=== PATIENT | female | born 1945 | race Caucasian/White ===

== ENCOUNTER → 2016-12-13 | Outpatient (CLI) | payer MEDICARE, OTHER | END | disposition home or self-care (01) | LOC: CFH 13:00 | PROVIDERS: ATTEND Internal Medicine Cardiovascular Disease | DX: I08.3 Combined rheumatic disorders of mitral, aortic and tricuspid valves (principal); I10 Essential (primary) hypertension; I51.7 Cardiomegaly; E11.9 Type 2 diabetes mellitus without complications; I25.2 Old myocardial infarction; I37.1 Nonrheumatic pulmonary valve insufficiency; Z95.5 Presence of coronary angioplasty implant and graft | CPT/HCPCS: C8929 ==

== ENCOUNTER 2017-01-03 09:57 | Day surgery (SDC) | payer MEDICARE, OTHER ==
[2017-01-01 13:26] VITALS: BP 123/62
[2017-01-01 13:44] LABS: BLOOD UREA NITROGEN 21 mg/dL (7-18)
[~2017-01-03] VITALS: Ht 160 cm; Wt 77.3 kg
[~2017-01-03 09:57] MED LIST: ASPI-496 PO; ATOR20TA PO; CARV12.52 PO; DULO20CA45 PO; FLUO20CA8 PO; FURO40TA6 PO; INSU100C SQ-INSULIN; INSU100I13 SQ; LEVO112T2 PO; LISI5TAB7 PO; OXYC20TA2 PO; POTA20TA6 PO; PRAM0.5T PO; SPIR25TA3 PO
[2017-01-03] MEDS ORDERED: SODIUM CHLORIDE 0.9% 1,000 ML IV SCH (10:11)
[2017-01-03] MEDS ORDERED: INSU300I SQ (10:28)
[2017-01-03] MEDS ORDERED: FURO20TA3 PO (10:28)
[2017-01-03] MEDS ORDERED: LIDOCAINE 2%, 20ML ONE (10:54)
[2017-01-03] MEDS ORDERED: MIDAZOLAM 1 MG/ML, 5ML ONE (10:54)
[2017-01-03] MEDS ORDERED: FENTANYL PF 100 MCG/2ML ONE (10:54)
[2017-01-03] MEDS ORDERED: HEPARIN 1,000 UNITS/ML, 10ML ONE (10:54)
[2017-01-03] MEDS ORDERED: VERAPAMIL 2.5 MG/ML, 2ML ONE (11:01)
[2017-01-03] MEDS ORDERED: SODIUM CHLORIDE 0.9% 500 ML IV SCH (13:30)
[2017-01-03] MEDS ORDERED: SACU1TAB PO (13:31)
== END 2017-01-03 16:30 | disposition home or self-care (01) ==
LOC: CACL 09:57
PROVIDERS: ATTEND Internal Medicine Cardiovascular Disease
DX: I25.10 Atherosclerotic heart disease of native coronary artery without angina pectoris (principal); I25.5 Ischemic cardiomyopathy; E78.2 Mixed hyperlipidemia; I10 Essential (primary) hypertension; E11.9 Type 2 diabetes mellitus without complications; E88.81 Metabolic syndrome and other insulin resistance; Z95.5 Presence of coronary angioplasty implant and graft; E66.9 Obesity, unspecified; Z68.30 Body mass index [BMI] 30.0-30.9, adult; Z79.01 Long term (current) use of anticoagulants
CPT/HCPCS: 36415; 80048; 85025; 85610; 85730; 93460; 99152; 99153; C1894; J1644; J2250; J3010; J3490; Q9967; 93451

== ENCOUNTER → 2018-06-12 | Outpatient (CLI) | payer MEDICARE, OTHER ==
[~2018-06-12] MED LIST changes: +FURO20TA3 PO; +INSU300I SQ; +SACU1TAB PO; -SPIR25TA3 PO; +SPIR25TA5 PO
== END | disposition home or self-care (01) ==
LOC: RAD 17:40
PROVIDERS: ATTEND Internal Medicine Cardiovascular Disease
DX: M71.22 Synovial cyst of popliteal space [Baker], left knee (principal)

== ENCOUNTER 2018-11-09 18:43 | Emergency (ER) | payer MEDICARE, OTHER ==
[~2018-11-09] VITALS: Ht 157.5 cm; Wt 79.4 kg
--- NOTE | 2018-11-09 19:27 | NUR ---
UPON RETURN FROM XRAY, LAB DRAWING BLOOD
[2018-11-09 19:40] VITALS: BP 138/64
[2018-11-09 19:40] LABS: BASOPHILS # (AUTO) 0.01 x10^3/uL (0-0.1); BASOPHILS % (AUTO) 0 % (0-1); EOSINOPHILS # (AUTO) 0.08 x10^3/uL (0-0.4); EOSINOPHILS % (AUTO) 2 % (1-7); LYMPHOCYTES # (AUTO) 1.21 x10^3/uL (1-3.4); LYMPHOCYTES % (AUTO) 25 % (22-44); MD NO; MEAN CORPUSCULAR HGB CONC 33.4 g/dL (32.4-35.8); MEAN CORPUSCULAR VOLUME 80.7 fL (80-100); MEAN PLATELET VOLUME 7.5 fL (7.4-10.4); MONOCYTES # (AUTO) 0.37 x10^3/uL (0.2-0.8); MONOCYTES % (AUTO) 8 % (2-9); NEUTROPHILS # (AUTO) 3.09 x10^3/uL (1.8-6.8); NEUTROPHILS % (AUTO) 65 % (42-75); PLATELET COUNT 230 x10^3/uL (130-400); RED BLOOD COUNT 3.89 x10^6/uL (3.82-5.3)
[2018-11-09 19:48] LABS: ALANINE AMINOTRANSFERASE 30 U/L (12-78); ALBUMIN 3.9 g/dL (3.4-5.0); ANION GAP 10 mmol/L (5-15); CALCIUM 8.9 mg/dL (8.5-10.1); CHLORIDE 105 mmol/L (98-107); CREATININE 1.05 mg/dL (0.55-1.02)
[2018-11-09 19:52] LABS: ALKALINE PHOSPHATASE 177 U/L (45-117); BILIRUBIN,TOTAL 0.8 mg/dL (0.2-1.0); TROPONIN I < 0.015 ng/mL (0.000-0.045)
[2018-11-09] MEDS ORDERED: BUME2TAB PO (20:04)
[2018-11-09] MEDS ORDERED: LOSA25TA25 PO (20:04)
[2018-11-09] MEDS ORDERED: CARV3.1212 PO (20:04)
--- NOTE | 2018-11-09 20:05 | NUR ---
MD EVALUATING PT
== END 2018-11-09 20:39 | disposition home or self-care (01) ==
LOC: ED 20:20
DX: I11.0 Hypertensive heart disease with heart failure (principal); I50.9 Heart failure, unspecified; E11.9 Type 2 diabetes mellitus without complications; I25.2 Old myocardial infarction; E07.9 Disorder of thyroid, unspecified; E03.9 Hypothyroidism, unspecified
CPT/HCPCS: 36415; 71046; 80053; 83880; 84484; 85025; 93005; 99284

== ENCOUNTER → 2019-01-01 | Outpatient (CLI) | payer MEDICARE, OTHER ==
[~2019-01-01] MED LIST changes: +BUME2TAB PO; +CARV3.1212 PO; +LOSA25TA25 PO
== END | disposition home or self-care (01) ==
LOC: CFH 13:54
PROVIDERS: ATTEND Internal Medicine Cardiovascular Disease
DX: I11.9 Hypertensive heart disease without heart failure (principal); I08.0 Rheumatic disorders of both mitral and aortic valves; E78.5 Hyperlipidemia, unspecified; E11.9 Type 2 diabetes mellitus without complications; I25.2 Old myocardial infarction
CPT/HCPCS: C8929; Q9957

== ENCOUNTER 2020-04-14 12:49 | Outpatient (CLI) | payer MEDICARE, OTHER ==
[~2020-04-14 12:49] MED LIST changes: +BUME1TAB21 PO; -BUME2TAB PO; +BUME2TAB3 PO; +CARV6.2512 PO; +FLUO20CA23 PO; -FLUO20CA8 PO; +LINA5TAB PO; +SPIR25TA PO
== END 2020-04-14 23:59 | disposition home or self-care (01) ==
LOC: CVU 12:49
PROVIDERS: ATTEND Internal Medicine Cardiovascular Disease
DX: I08.1 Rheumatic disorders of both mitral and tricuspid valves (principal); I25.10 Atherosclerotic heart disease of native coronary artery without angina pectoris; I27.20 Pulmonary hypertension, unspecified
CPT/HCPCS: C8929; Q9957